=== PATIENT | male | born 1970 | race Caucasian/White ===

== ENCOUNTER → 2024-03-08 06:15 | Day surgery (SDC) | payer BC, SELFPAY | LOC: GI 06:15 | PROVIDERS: ATTENDING PHYSICIAN Internal Medicine Gastroenterology | DX: Z12.11 Encounter for screening for malignant neoplasm of colon (principal); K64.8 Other hemorrhoids; K57.30 Diverticulosis of large intestine without perforation or abscess without bleeding; D12.4 Benign neoplasm of descending colon | CPT/HCPCS: 45385; 88305 ==

== ENCOUNTER → 2025-03-03 06:48 | Outpatient (REF) | payer OTHER, SELFPAY | LOC: DHSLP 06:48 | PROVIDERS: ATTENDING PHYSICIAN Nurse Practitioner | DX: G47.33 Obstructive sleep apnea (adult) (pediatric) (principal) | CPT/HCPCS: 95800 ==

== ENCOUNTER → 2025-05-13 07:03 | Outpatient (REF) | payer OTHER, SELFPAY | LOC: MRI 3T 07:03 | PROVIDERS: ATTENDING PHYSICIAN Pain Medicine Interventional Pain Medicine; FAMILY PHYSICIAN Nurse Practitioner | DX: M54.16 Radiculopathy, lumbar region (principal) | CPT/HCPCS: 72148 ==